=== PATIENT | male | born 1950 | race Two or more races ===

== ENCOUNTER 2020-08-05 11:50 | Outpatient (CLI) | payer MEDICARE, OTHER ==
[~2020-08-05] VITALS: Ht 172.7 cm; Wt 88.0 kg
[2020-08-05 12:09] VITALS: BP 172/100
[2020-08-05] MEDS ORDERED: BENAZEPRIL HCL20 MG ORAL (15:13)
[2020-08-05] MEDS ORDERED: DOCUSATE SODIU100 MG ORAL (15:13)
[2020-08-05] MEDS ORDERED: ASPIRIN EC81 MG ORAL (15:13)
[2020-08-05] MEDS ORDERED: BISACODYL5 MG ORAL (15:13)
--- NOTE | 2020-08-06 15:29 | Consultation ---
DATE OF CONSULTATION: 08/05/2020 REASON FOR CONSULTATION: Referring for solid dysphagia, screening colonoscopy evaluation. PAST MEDICAL HISTORY: Hypertension, hypercholesteremia. PAST SURGICAL HISTORY: surgery. MEDICATIONS: See medication reconciliation. FAMILY HISTORY: Noncontributory. SOCIAL HISTORY: The patient denies any tobacco, alcohol, or drug abuse. ALLERGIES: No known allergies. REVIEW OF SYSTEMS: Positive for constipation and solid dysphagia. PHYSICAL EXAMINATION: VITAL SIGNS: Temperature 98.7, blood pressure is 172/100, pulse is 72, respirations 20. Height is 5 feet 8 inches, weight is 104. HEENT: Normocephalic, atraumatic. Sclerae anicteric. NECK: Supple. No evidence of obvious lymphadenopathy. CARDIOVASCULAR: Regular rate and rhythm. Plus S1-S2. LUNGS: Decreased breath sound bilaterally. ABDOMEN: Soft, nontender. No rebound. No guarding. No peritoneal sign. EXTREMITIES: No cyanosis, no clubbing, no edema. ASSESSMENT AND PLAN: This is a 70-year-old male with solid dysphagia, would require endoscopy. Also, he has never had a colonoscopy, so we will schedule for both. Prep was explained to the patient. We will schedule him as soon as is available. Jhoan Hendrickson M.D. DR: MONI JOB#: [id number] CC:
== END 2020-08-05 14:40 | disposition home or self-care (01) ==
LOC: PAN 11:50
DX: K59.00 Constipation, unspecified (principal); I10 Essential (primary) hypertension; E78.00 Pure hypercholesterolemia, unspecified; R13.10 Dysphagia, unspecified
CPT/HCPCS: 99203

== ENCOUNTER 2020-08-16 08:50 | Day surgery (SDC) | payer MEDICARE, OTHER ==
[~2020-08-16] VITALS: Ht 172.7 cm; Wt 86.2 kg
[2020-08-16] VITALS (9 sets, daily range): BP systolic 141–181; BP diastolic 83–115
--- NOTE | 2020-08-16 07:48 | Anethesia Preoperative Eval ---
Anesthesia Pre-op PMH/ROS General Date of Evaluation: Aug 16, 2020 Time of Evaluation: 07:44 Anesthesiologist: marion ASA Score: ASA 3 Mallampati Score Class I : Soft palate, uvula, fauces, pillars visible Class II: Soft palate, uvula, fauces visible Class III: Soft palate, base of uvula visible Class IV: Only hard plate visible Mallampati Classification: Class II Surgeon: loan Diagnosis: dysphagia, colon screening Surgical Procedure: egd/colonoscopy Anesthesia History: none Family History: no anesthesia problems Allergies: Coded Allergies: No Known Allergies (Unverified , 08/16/20) Medications: see eMAR Patient NPO?: Yes Past Medical History Cardiovascular: Reports: HTN, other - hypercholesterolemia HEENT: Reports: cataract (L), cataract (R), glaucoma, [place] (R) PSxH Narrative: appendectomy, cataract sx Anesthesia Pre-op Phys. Exam Physician Exam Last Vital Signs Date Time Temp Pulse Resp B/P (MAP) Pulse Ox O2 Delivery O2 Flow Rate FiO2 08/16/20 11:00 72 18 146/115 97 Room Air 08/16/20 10:00 98.4 Constitutional: NAD Neurologic: CN 2-12 intact Cardiovascular: RRR Respiratory: CTA Gastrointestinal: S/NT/ND Airway Exam Mallampati Score: Class II MO: limited Neck: flexible TMD: 2fb ROM: limited Dentures: upper, lower Anesthesia Pre-op A/P Labs Microbiology Date/Time Source Procedure Growth Status 08/12/20 09:10 Nasopharynx Coronavirus COVID-19 PCR ([facility]) - Final Complete Studies Pre-op Studies: EKG - nsr, lad Risk Assessment & Plan Assessment: asa3 Plan: mac Status Change Before Surgery: No Pre-Antibiotics Drug: Angeli Dean MD Aug 16, 2020 07:48
[~2020-08-16 08:50] MED LIST: ASPIRIN EC81 MG ORAL; Atropine Inj 1mg/10ml Syr IVP PRN; BENAZEPRIL HCL20 MG ORAL; BISACODYL5 MG ORAL; DOCUSATE SODIU100 MG ORAL; DiphenhydrAMINE 50mg/ml Inj IVP PRN; LR 1000ml 1,000 ML IVLG SCH; Midazolam 2mg/2ml Inj IVP PRN; fentaNYL 100 mcg/2 mL IV PRN
[2020-08-16] MEDS ORDERED: Lidocaine 1% MPF 10mg/ml 5ml ONE (08:51)
[2020-08-16] MEDS ORDERED: LR 1000ml ONE (08:51)
--- NOTE | 2020-08-16 10:10 | Pre-Procedure Note/Attestation ---
Pre-Procedure Note/Attestation Complete Prior to Procedure Planned Procedure: not applicable Procedure Narrative: EGD and colonoscopy Indications for Procedure Pre-Operative Diagnosis: GERD, screening colon Attestation I attest that I discussed the nature of the procedure; its benefits; risks and complications; and alternatives (and the risks and benefits of such alternatives), prior to the procedure, with the patient (or the patient's legal veterans contact representative). I attest that, if there was a reasonable possibility of needing a blood transfusion, the patient (or the patient's legal veterans contact representative) was given the [facility] standardized written summary, pursuant to the Bashir Fredi Blood Safety Act ([place] Health and Safety Code # 1645, as amended). I attest that I re-evaluated the patient just prior to the surgery and that there has been no change in the patient's H&P, except as documented below: Jhoan Hendrickson MD Aug 16, 2020 10:10
--- NOTE | 2020-08-16 10:11 | Short Stay Surgery H&P ---
History of Present Illness History of Present Illness Chief Complaint see recent office note HPI Yury Peck is a 70 year old male who was admitted on for Disfacia, Screening Patient History Allergies: Coded Allergies: No Known Allergies (Unverified , 08/16/20) Medication History Scheduled Aspirin Ec* (Aspirin Ec*), 81 MG ORAL DAILY, (Reported) Benazepril Hcl* (Benazepril Hcl*), 20 MG ORAL EVERY 12 HOURS, (Reported) Bisacodyl* (Dulcolax*), 5 MG ORAL DAILY, (Reported) Docusate Sodium* (Docusate Sodium*), 100 MG ORAL DAILY, (Reported) Physical Exam Vital Signs Last Vital Signs Date Time Temp Pulse Resp B/P (MAP) Pulse Ox O2 Delivery O2 Flow Rate FiO2 08/16/20 09:58 Room Air Plan Attestation Are the patient's medical conditions optimized for surgery? Jhoan Hendrickson MD Aug 16, 2020 10:11
--- NOTE | 2020-08-16 11:54 | Endoscopy Procedure Note ---
Endoscopy Procedure Note General Indication for Procedure: screening colonoscopy, GERD Procedures Performed: EGD, colonoscopy Operative Findings/Diagnosis: gastritis, 5 polyps Specimen: yes Pt Tolerated Procedure Well: Yes Estimated Blood Loss: none Anesthesia Anesthesiologist: eliecer Anesthesia: MAC Inserted Devices Implant(s) used?: No Quality Quality of Bowel Preparation: Good Did scope reach the cecum?: Yes Was there any complications?: No GI Core Measures 50 yrs or older w/o bx or poly: No 10yrs. F/U recommended: Yes If not recommended, why?: Above average risk 18 years or older w/prev. colo: No Jhoan Hendrickson MD Aug 16, 2020 11:54
--- NOTE | 2020-08-16 12:29 | Procedure Note ---
DATE OF PROCEDURE: 08/16/2020 SURGEON: Jhoan Hendrickson MD PROCEDURE: Upper endoscopy with biopsy, colonoscopy with biopsy, and polypectomy. ANESTHESIA: Per Dr. Moeller. INSTRUMENT: Olympus adult flexible upper endoscope and colonoscope. INDICATION: Screening colonoscopy evaluation and chronic GERD. REASON FOR PROCEDURE: The procedure, risks, benefits, and possible consequences, including hemorrhage, aspiration, perforation and infection, and alternative treatments, were explained to the patient/legal guardian by Dr. Jhoan Hendrickson and the patient/legal guardian understood and accepted these risks. PROCEDURE IN DETAIL: After informed consent was obtained and the patient was adequately sedated, Olympus upper endoscope was advanced from mouth into the second portion of the duodenum and retroflexion was performed in the stomach. The patient had diffuse gastritis. Random biopsy from antrum and body was obtained to rule out H. pylori infection. At this time, the upper endoscope was retrieved and the patient was turned over for colonoscopy. First, rectal exam was performed, which was positive for internal hemorrhoids. Then, the scope was advanced from rectum into the cecum and then subsequently terminal ileum. Quality of prep was overall good. The patient had total of 5 polyps in this colonoscopy examination. The largest one was in the descending colon, pedunculated, measured roughly about 1 cm removed with hot snare polypectomy technique. There were 2 small polyps in the transverse colon, removed with cold biopsy forceps technique, and another one in the cecum removed with cold biopsy forceps technique and one in the rectum removed with hot snare polypectomy technique. Again, the largest one was in the descending colon measured 1 cm. The rest of the examination grossly looked within normal limits. Retroflexion of rectum showed evidence of internal hemorrhoids. SUMMARY OF FINDINGS: 1. Gastritis status post biopsy. 2. Five colonic polyps removed, see above for details. 3. Internal hemorrhoids. RECOMMENDATIONS: 1. Follow pathology and treat accordingly. 2. We will recommend repeat colonoscopy in three years. Jhoan Hendrickson M.D. DR: Aldo JOB#: [id number] CC:
--- NOTE | 2020-08-16 12:59 | Immediate Post-Op Evaluation ---
Immediate Post-Op Evalulation Immediate Post-Op Evalulation Procedure: egd/colonoscopy w/ bx Date of Evaluation: Aug 16, 2020 Time of Evaluation: 12:14 IV Fluids: 650ml lr Blood Products: none Estimated Blood Loss: negligible Blood Pressure Systolic: 142 Blood Pressure Diastolic: 86 Pulse Rate: 65 Respiratory Rate: 18 O2 Sat by Pulse Oximetry: 100 Temperature (Fahrenheit): 97.5 Pain Score (1-10): 0 Nausea: No Vomiting: No Complications none Patient Status: awake, reacts, patent Hydration Status: adequate Drug: Angeli Dean MD Aug 16, 2020 12:59
--- NOTE | 2020-08-16 13:01 | 48 Hour Post Anesthesia Eval ---
Post Anesthesia Evaluation Procedure: egd/colonoscopy w/ bx Date of Evaluation: Aug 16, 2020 Time of Evaluation: 12:16 Blood Pressure Systolic: 166 0: 86 Pulse Rate: 79 Respiratory Rate: 20 Temperature (Fahrenheit): 97.5 O2 Sat by Pulse Oximetry: 100 Airway: patent Nausea: No Vomiting: No Pain Intensity: 0 Hydration Status: adequate Cardiopulmonary Status: stable Mental Status/LOC: patient returned to baseline Post-Anesthesia Complications: none Follow-up care needed: N/A Angeli Dailey MD Aug 16, 2020 13:01
== END 2020-08-16 13:00 | disposition home or self-care (01) ==
LOC: GAS 08:50
DX: Z12.11 Encounter for screening for malignant neoplasm of colon (principal); K21.9 Gastro-esophageal reflux disease without esophagitis; K27.0 Acute peptic ulcer, site unspecified, with hemorrhage; K63.5 Polyp of colon; K64.8 Other hemorrhoids; Z79.82 Long term (current) use of aspirin; Z79.899 Other long term (current) drug therapy; I10 Essential (primary) hypertension; E78.00 Pure hypercholesterolemia, unspecified; Z90.89 Acquired absence of other organs
CPT/HCPCS: 43239; 45380; 45384; 94003; J0360; J2704; J7120; U0004; 94150

== ENCOUNTER → 2020-08-24 | Outpatient (CLI) | payer MEDICARE, OTHER ==
[~2020-08-24] MED LIST changes: -Atropine Inj 1mg/10ml Syr IVP PRN; -DiphenhydrAMINE 50mg/ml Inj IVP PRN; -LR 1000ml 1,000 ML IVLG SCH; -Midazolam 2mg/2ml Inj IVP PRN; -fentaNYL 100 mcg/2 mL IV PRN
[2020-08-24 09:15] VITALS: BP 214/106
== END | disposition home or self-care (01) ==
LOC: PAN 08:56
DX: R10.9 Unspecified abdominal pain (principal)

== ENCOUNTER → 2020-09-07 | Outpatient (CLI) | payer MEDICARE, OTHER ==
[2020-09-07 09:15] VITALS: BP 185/88
[2020-09-07 09:17] VITALS: BP 166/91
--- NOTE | 2020-09-07 11:01 | General Progress Note ---
Subjective ROS Limited/Unobtainable: No Allergies: Coded Allergies: No Known Allergies (Unverified , 08/16/20) Objective Last 24 Hour Vital Signs Date Time Temp Pulse Resp B/P (MAP) Pulse Ox O2 Delivery O2 Flow Rate FiO2 09/07/20 09:17 166/91 09/07/20 09:15 97.9 64 16 185/88 97 General Appearance: no apparent distress EENT: normal ENT inspection Neck: supple Cardiovascular: normal rate Respiratory/Chest: decreased breath sounds Abdomen: normal bowel sounds, non tender, soft Extremities: non-tender Assessment/Plan Assessment/Plan: malt lymphoma HP gastritis 5 colon polyps treat for HP repeat EGD in 3 months repeat colon in 3 years Jhoan Hendrickson MD Sep 07, 2020 11:01
== END | disposition home or self-care (01) ==
LOC: PAN 09:05
DX: K29.70 Gastritis, unspecified, without bleeding (principal); B96.81 Helicobacter pylori [H. pylori] as the cause of diseases classified elsewhere; K63.5 Polyp of colon; C88.4 Extranodal marginal zone B-cell lymphoma of mucosa-associated lymphoid tissue [MALT-lymphoma]